=== PATIENT | female | born 1990 | race Caucasian/White ===

== ENCOUNTER 2016-11-06 17:42 | Emergency (ER) | payer OTHER ==
[~2016-11-06] VITALS: Ht 157.5 cm; Wt 67.1 kg
[2016-11-06 19:50] VITALS: BP 115/67
== END 2016-11-06 19:50 | disposition home or self-care (01) ==
LOC: ED 17:42
DX: T40.601A Poisoning by unspecified narcotics, accidental (unintentional), initial encounter (principal); Y92.89 Other specified places as the place of occurrence of the external cause

== ENCOUNTER 2019-01-26 16:26 | Emergency (ER) | payer OTHER ==
[~2019-01-26] VITALS: Ht 160 cm; Wt 71.7 kg
[2019-01-26 16:35] VITALS: Ht 160 cm; Wt 71.7 kg
[2019-01-26 17:23] LABS: BASOPHIL % 0.2 % (0-2); PLATELET COUNT 299 x10^3mcL (130-400)
[2019-01-26 17:35] LABS: UA SPECIFIC GRAVITY 1.025 (1.005-1.035); microscopic required? YES; urine erythrocyte TRACE (NEGATIVE)
[2019-01-26 18:35] VITALS: BP 104/68
== END 2019-01-26 18:35 | disposition home or self-care (01) ==
LOC: ED 16:26
PROVIDERS: Emergency Medicine
DX: O20.0 Threatened abortion (principal)
CPT/HCPCS: 36415

== ENCOUNTER 2019-03-02 03:21 | Emergency (ER) | payer OTHER ==
[~2019-03-02] VITALS: Ht 157.5 cm; Wt 68.0 kg
[2019-03-02 03:23] VITALS: Ht 157.5 cm; Wt 68.0 kg
[2019-03-02 04:18] LABS: BASOPHIL % 0.5 % (0-2); PLATELET COUNT 306 x10^3mcL (130-400); RED CELL DISTRIBUTION WIDTH 14.5 % (11.5-14.5)
[2019-03-02 04:27] LABS: CARBON DIOXIDE 29.7 mmol/L (21-32); CHLORIDE SERUM 107 mmol/L (98-107); CREATININE SERUM 0.8 mg/dL (0.6-1.0); GFR1 > 60 mL/min; GLUCOSE SERUM 106 mg/dL (74-106); POTASSIUM SERUM 3.4 mmol/L (3.5-5.1); SODIUM SERUM 143 mmol/L (136-145)
[2019-03-02 04:32] LABS: ALKALINE PHOSPHATASE 71 U/L (46-116); ALT/SGPT 23 U/L (14-59); AST/SGOT 24 U/L (15-37); BILIRUBIN TOTAL 0.3 mg/dL (0.20-1.00); LIPASE 125 IU/L (73-393); TOTAL PROTEIN, SERUM 6.2 g/dL (6.4-8.2)
[2019-03-02 06:25] VITALS: BP 95/52
== END 2019-03-02 06:25 | disposition home or self-care (01) ==
LOC: ED 03:21
PROVIDERS: Emergency Medicine
DX: K21.9 Gastro-esophageal reflux disease without esophagitis (principal); K29.70 Gastritis, unspecified, without bleeding
CPT/HCPCS: J2270; J2405